=== PATIENT | female | born 1950 | race Caucasian/White ===

== ENCOUNTER → 2017-04-17 | Outpatient (CLI) | payer MEDICARE | END | disposition home or self-care (01) | LOC: SHCH 12:42 | PROVIDERS: ATTEND Internal Medicine Cardiovascular Disease | DX: I10 Essential (primary) hypertension (principal); I42.9 Cardiomyopathy, unspecified; G47.33 Obstructive sleep apnea (adult) (pediatric) | CPT/HCPCS: 93306 ==

== ENCOUNTER → 2023-06-29 | Outpatient (CLI) | payer OTHER ==
[2023-06-29 12:21] LABS: BASOPHILS # (AUTO) 0.03 K/uL (0.00-0.20); BASOPHILS % (AUTO) 0.5 % (0.0-5.0); EOSINOPHILS # (AUTO) 0.07 K/uL (0.00-0.70); EOSINOPHILS % (AUTO) 1.1 % (0.0-8.0); HEMATOCRIT 44.6 % (36-48); IMMATURE GRANULOCYTE ABSOLUTE 0.02 K/uL (0-1); LYMPHOCYTES # (AUTO) 1.2 K/uL (1.0-4.8); LYMPHOCYTES % (AUTO) 17.4 % (21.0-51.0); MEAN CORPUSCULAR HEMOGLOBIN 29.3 pg (27.0-33.0); MEAN CORPUSCULAR HGB CONC 32.3 g/dL (32.0-36.0); MEAN CORPUSCULAR VOLUME 90.8 fL (79-99); MONOCYTES # (AUTO) 0.5 K/uL (0.1-1.0); MONOCYTES % (AUTO) 7.4 % (3.0-13.0); NEUTROPHILS # (AUTO) 4.9 K/uL (1.8-7.7); NEUTROPHILS % (AUTO) 73.3 % (40.0-77.0); PLATELET COUNT (AUTO) 297 K/uL (130-400); RED BLOOD CELL COUNT(AUTO) 4.91 MIL/uL (4.00-5.50); RED CELL DISTRIBUTION WIDTH 14.3 % (11.0-15.5); WHITE BLOOD COUNT (AUTO) 6.6 K/uL (4.8-10.8)
[2023-06-29 12:44] LABS: B-TYPE NATRIURETIC PEPTIDE 71 pg/mL (0-100)
[2023-06-29 12:47] LABS: ALBUMIN 3.6 g/dL (3.5-5.0); BILIRUBIN,TOTAL 0.7 mg/dL (0.2-1.0); POTASSIUM 4.5 mmol/L (3.5-5.1); TOTAL PROTEIN, SERUM 6.8 g/dL (6.0-8.3)
== END | disposition home or self-care (01) ==
LOC: LAB 09:17
PROVIDERS: ATTEND Internal Medicine Cardiovascular Disease
DX: I11.0 Hypertensive heart disease with heart failure (principal); I50.22 Chronic systolic (congestive) heart failure
CPT/HCPCS: 36415; 80053; 80061; 83880; 85025

== ENCOUNTER 2023-07-23 09:45 | Emergency (ER) | payer OTHER ==
[~2023-07-23] VITALS: Ht 170.2 cm; Wt 130.6 kg
[2023-07-23 09:47] VITALS: BP 104/49; PULSE 80; RESP 20
[2023-07-23] MEDS ORDERED: ACET-66 PO (11:01)
[2023-07-23] MEDS: ACETAMINOPHEN WITH CODEINE 1 TAB TAB PO ONE (11:09)
[2023-07-26] MEDS ORDERED: GABA-529 PO (05:42)
[2023-07-26] MEDS ORDERED: HYDR25TA PO (05:42)
[2023-07-26] MEDS ORDERED: LEVO125C4 PO (05:42)
[2023-07-26] MEDS ORDERED: LOSA100T59 PO (05:42)
[2023-07-26] MEDS ORDERED: PIOG15TA66 PO (05:42)
[2023-07-26] MEDS ORDERED: CHOL500045 PO (05:42)
[2023-07-26] MEDS ORDERED: CALC500T13 PO (05:42)
[2023-07-26] MEDS ORDERED: HYDR-4068 PO (05:42)
[2023-07-26] MEDS ORDERED: PRAM0.375 PO (05:42)
[2023-07-26] MEDS ORDERED: ATOR20TA65 PO (05:42)
[2023-07-26] MEDS ORDERED: MELO-108 PO (05:42)
== END 2023-07-23 11:55 | disposition home or self-care (01) ==
LOC: EDH 09:45
DX: G89.29 Other chronic pain (principal); M25.559 Pain in unspecified hip; M48.56XA Collapsed vertebra, not elsewhere classified, lumbar region, initial encounter for fracture; Z88.2 Allergy status to sulfonamides
CPT/HCPCS: 72131

== ENCOUNTER → 2024-01-23 | Outpatient (CLI) | payer OTHER ==
[~2024-01-23] MED LIST: GABA-529 PO; HYDR-4068 PO; LEVO125C4 PO; PIOG15TA66 PO; POTA-200 PO; PRAM0.375 PO; SPIR25TA6 PO
--- NOTE | 2024-01-23 20:12 | HMCSR ---
APPROVED REPORT EXAM: Two-dimensional and M-mode echocardiogram with Doppler and color Doppler. INDICATION ICD: I38.0 2D Dimensions RVDd4.3 cmLVEF(%)43.5 (>50%)LVED Vol(simp.)94.8 mL IVSd0.8 (0.7-1.1cm)FS(%)22 %LVES Vol(simp.)56.1 mL LVDd5.5 (3.8-5.6cm)LA (2D)3.4 (1.6-4.0cm)LVEF(%, simp.)41 % PWd1.0 (0.7-1.1cm)LVOT diam2.0 (1.8-2.4cm)LA ESV INDEX (4CH)27.90 mL/m2 IVSs1.1 cmLA ESV INDEX (2CH)32.20 mL/m2 LVDs4.3 (2.5-4.0cm)LA ESV INDEX (BP)31.00 mL/m2 PWs0.9 cm M-Mode Dimensions EPSS1.0 cm LA (MM)4.3 (1.6-4.0cm) Ao Root(MM)3.7 (2.0-3.7cm) Aortic Valve AoV VTI0.3 mAo Mean GR5.0 mmHgLVOT VTI0.18 m WILVER (VMAX)1.8 cm2AVA (VTI) 1.8 cm2 Mitral Valve MV E [id number] cm/sDECEL Sbep634 ms MV A Vmax76.6 cm/sP 1/2 T92 ms E/A ratio1.3MVA (PHT)2.4 cm2 TDI E/E' Cvapnq29.7E/E' Sdvkxim90.9 Medial E' Peak V4.50 cm/sLateral E' Peak V5.40 cm/s Pulmonary Valve PV VTI0.26 mPV Mean GR2 mmHg Tricuspid Valve TR Vmax1.3 m/sRAP (EST) 3 jnSnZXOQ33.2 mmHg TR Peak GR7.2 mmHg Left Ventricle Left ventricular cavity size is normal. Symmetric wall motion. There is normal left ventricular wall thickness. LVEF is 40%. Indeterminate diastolic function, normal or Grade III. Right Ventricle The right ventricle is moderately dilated with apical blunting. The right ventricular systolic functi on is normal. Atria The left atrium size is normal. The right atrium is moderately dilated. Aortic Valve Aortic valve is trileaflet and opens well. Trivial aortic regurgitation is present. There is no aorti c valvular stenosis. Mitral Valve Posterior mitral leaflet appears thickened and annulus is calcified. Prosthetic mitral valve present. There is trace of mitral valve regurgitation noted. Tricuspid Valve The tricuspid valve leaflets appear normal and open well. There is trace of tricuspid valve regurgita tion noted. Pulmonic Valve The pulmonary valve is normal in structure and function. There is no pulmonic valvular regurgitation. Great Vessels The aortic root is normal in size. The IVC is normal in size and collapses >50% with inspiration. Pericardium No pericardial effusion. Other Information Quality : Technically difficult tudy due to body habitus Conclusion LVEF is 40%. Indeterminate diastolic function, normal or Grade III. The right ventricle is moderately dilated with apical blunting. Trivial aortic regurgitation is present. Posterior mitral leaflet appears thickened and annulus is calcified.
== END | disposition home or self-care (01) ==
LOC: SHCH 14:27
PROVIDERS: ATTEND Internal Medicine Cardiovascular Disease
DX: I08.0 Rheumatic disorders of both mitral and aortic valves (principal); Z95.2 Presence of prosthetic heart valve
CPT/HCPCS: 93306